=== PATIENT | female | born 1975 | race Caucasian/White ===

== ENCOUNTER 2020-10-20 13:43 | Outpatient (REF) | payer OTHER, SELFPAY ==
--- NOTE | ~2020-10-20 | US_ITS ---
EXAMINATION: US RETROPERITONEAL COMPLETE (RENAL) CLINICAL INFORMATION: Left lower quadrant pain. Hematuria. COMPARISON: CT abdomen and pelvis 12/26/2019. KUB 09/01/2015. TECHNIQUE: Real-time imaging of the kidneys and bladder. FINDINGS: RIGHT KIDNEY: 10.8 x 6.1 x 6.3 cm (SAG x AP x TRV). The kidney is normal in size, contour, and echogenicity. Renal cortical thickness is normal. No calculi or focal parenchymal lesions. No hydronephrosis. LEFT KIDNEY: 10.5 x 7.1 x 7.4 cm (SAG x AP x TRV). The kidney is normal in size, contour, and echogenicity. Renal cortical thickness is normal. No calculi or focal parenchymal lesions. No hydronephrosis. BLADDER: Well distended and normal. Bilateral ureteral jets are demonstrated. Prevoid bladder volume is 359 mL. Postvoid bladder volume is 37 mL. US/US retroperitoneal comp IMPRESSION: Unremarkable exam.
== END 2020-10-20 13:44 | disposition home or self-care (01) ==
LOC: HO.US 13:43
PROVIDERS: PCP Internal Medicine Geriatric Medicine; Visit Provider Internal Medicine Geriatric Medicine
DX: R10.32 Left lower quadrant pain (principal); R31.29 Other microscopic hematuria
CPT/HCPCS: 76770

== ENCOUNTER 2021-03-09 08:53 | Outpatient (REF) | payer OTHER, SELFPAY ==
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
== END 2021-03-09 08:54 | disposition home or self-care (01) ==
LOC: HO.NEURO 08:53
PROVIDERS: Visit Provider Registered Nurse Community Health
DX: M79.601 Pain in right arm (principal); M79.602 Pain in left arm
CPT/HCPCS: 95886; 95913

== ENCOUNTER 2021-11-30 12:38 | Outpatient (REF) | payer OTHER, SELFPAY ==
--- NOTE | ~2021-11-30 | MM_ITS ---
EXAMINATION: MM SCREENING DIGITAL BREAST TOMOSYNTHESIS, BILATERAL CLINICAL INFORMATION: Screening. Asymptomatic. The lifetime risk of breast cancer based on the Tyrer-Cuzick Model is 6%. COMPARISON: Mammography: 04/24/2019, 04/09/2018, 08/30/2017, 02/09/2017, 02/02/2017 bilateral breast MRI 05/26/2019. TECHNIQUE: Digital mammography is performed in craniocaudal and mediolateral oblique views along with computer-aided detection (CAD). Digital breast tomosynthesis is performed in implant-displaced craniocaudal and implant-displaced mediolateral oblique views along with computer-aided detection (CAD). Synthesized 2D images are generated from the tomosynthesis. FINDINGS: There are scattered areas of fibroglandular density (ACR BI-RADS breast composition Category b). There are bilateral implants. Implant contours are smooth and similar to prior studies. There is no significant masses or interval architectural abnormality or developing density or abnormal calcification. The axilla and skin contours are unremarkable. No significant changes from prior exams. MM/MM tomosynthesis screen imp BI IMPRESSION: No mammographic evidence of malignancy. ASSESSMENT: BI-RADS 1: Negative RECOMMENDATION: Routine annual mammography screening. This patient's information was entered into a reminder system with a target due date for their next mammogram.
== END 2021-11-30 12:39 | disposition home or self-care (01) ==
LOC: HO.MAMMO 12:38
PROVIDERS: PCP Internal Medicine Geriatric Medicine; Visit Provider Internal Medicine Geriatric Medicine
DX: Z12.31 Encounter for screening mammogram for malignant neoplasm of breast (principal)
CPT/HCPCS: 77063; 77067

== ENCOUNTER 2023-01-04 09:55 | Outpatient (REF) | payer OTHER, SELFPAY ==
[2023-01-04 13:39] LABS: MANUAL DIFF FLAG NO
[2023-01-04 13:53] LABS: Basophils Absolute Auto 0.1 X10*3/uL (0.0-0.2); Basophils Percent Auto 1.2 % (0-2); Eosinophils Absolute Auto 0.1 X10*3/uL (0.0-0.4); Eosinophils Percent Auto 2.3 % (0-4); Hematocrit 37.5 % (37.0-47.0); Hemoglobin 12.2 g/dl (12.0-16.0); Imm Gran Abs Auto 0.01 X10*3/uL (0.00-0.03); Imm Gran Pct Auto 0.2 % (0.0-0.4); Lymphocytes Absolute Auto 1.8 X10*3/uL (1.2-4.9); Lymphocytes Percent Auto 34.6 % (20-40); Mean Corpuscular HGB Conc 32.5 g/dl (31.0-35.0); Mean Corpuscular Volume 79.8 fL (80.0-98.0); Mean Platelet Volume 11.5 fL (9.4-12.3); Monocytes Absolute Auto 0.6 X10*3/uL (0.1-1.2); Monocytes Percent Auto 10.9 % (2-11); Neutrophils Absolute Auto 2.6 x10*3/uL (2.0-8.3); Neutrophils Percent Auto 50.8 % (45-73); Platelet Count 301 X10*3/uL (160-400); Red Cell Distribution Width 14.9 % (11.0-16.0); White Blood Count 5.1 X10*3/uL (4.8-10.8)
[2023-01-04 13:54] LABS: Microalbum/Creatinine Ratio Ur 6.3 ug/mg cr
[2023-01-04 15:11] LABS: Alanine Aminotransferase 10 U/L (0-31); Albumin Level 3.9 g/dL (3.5-5.0); Alkaline Phosphatase 63 U/L (39-117); Anion Gap 13 (12-20); Aspartate Amino Transferase 14 U/L (5-31); Bilirubin Total 0.7 mg/dL (0.0-1.0); Blood Urea Nitrogen 9 mg/dL (9-16); Calcium 9.7 mg/dL (8.4-10.2); Carbon Dioxide 28 mmol/L (22-29); Chloride 102 mmol/L (96-108); Cholesterol 166 mg/dL; Estimated Glomerular Filt Rate > 60; Glucose Random 235 mg/dL (60-115); HDL Cholesterol 47 mg/dL; LDL Cholesterol Calculated 108 mg/dl; Potassium 4.7 mmol/L (3.3-5.1); Sodium 138 mmol/L (135-145); TSH reflex Free T4 1.35 uIU/mL (0.32-4.0); Total Protein 7.7 g/dL (6.5-8.0); Triglycerides 59 mg/dL; Vitamin D 25-OH Total 33.8 ng/mL (>30)
== END 2023-01-04 09:56 | disposition home or self-care (01) ==
LOC: HO.HHCL 09:55
PROVIDERS: Visit Provider Internal Medicine Geriatric Medicine
DX: E11.69 Type 2 diabetes mellitus with other specified complication (principal); R53.83 Other fatigue; Z79.4 Long term (current) use of insulin; F41.8 Other specified anxiety disorders
CPT/HCPCS: 36415; 80053; 80061; 82043; 82306; 84443; 85025

== ENCOUNTER 2023-08-14 09:58 | Outpatient (REF) | payer OTHER, SELFPAY ==
[2023-08-14 12:02] LABS: HBS Num1 0.63 mIU/mL (0-7.99); HBsAGNum1 0.47 S/CO (0.00-0.99); Hepatitis B Surface Antigen Negative (Negative); ~Hepatitis B Surface Antibody NONREACTIVE (Nonreactive); ~Hepatitis C Antibody Nonreactive (Nonreactive)
[2023-08-14 12:14] LABS: Alanine Aminotransferase 8 U/L (0-31); Albumin Level 4.2 g/dL (3.5-5.0); Alkaline Phosphatase 73 U/L (39-117); Anion Gap 11 (12-20); Aspartate Amino Transferase 13 U/L (5-31); Bilirubin Total 0.9 mg/dL (0.0-1.0); Blood Urea Nitrogen 11 mg/dL (9-16); Calcium 9.6 mg/dL (8.4-10.2); Carbon Dioxide 26 mmol/L (22-29); Chloride 104 mmol/L (96-108); Estimated Glomerular Filt Rate > 60; Glucose Random 306 mg/dL (60-115); Potassium 4.2 mmol/L (3.3-5.1); Sodium 137 mmol/L (135-145); Total Protein 8.1 g/dL (6.5-8.0)
[2023-08-14 12:27] LABS: HIV AB/AG Nonreactive (Nonreactive); HIV Num 1 0.09 S/CO (0.00-0.99)
[2023-08-14 12:29] LABS: Creatinine Urine 104.91 mg/dL; Microalbum/Creatinine Ratio Ur 7.6 ug/mg cr (<30)
[2023-08-16 08:08] LABS: RPR Rapid Plasma Reagin NON-REACTIVE (NON-REACTIVE)
== END 2023-08-14 09:59 | disposition home or self-care (01) ==
LOC: HO.HHCL 09:58
PROVIDERS: Visit Provider Internal Medicine Geriatric Medicine
DX: E11.69 Type 2 diabetes mellitus with other specified complication (principal); F41.8 Other specified anxiety disorders; Z79.4 Long term (current) use of insulin
CPT/HCPCS: 36415; 80053; 82043; 82570; 86592; 86706; 86803; 87340; 87389

== ENCOUNTER 2024-03-26 | Outpatient (REF) | payer OTHER, SELFPAY | END 2024-03-26 00:01 | disposition home or self-care (01) | LOC: HO.HHCLNP | PROVIDERS: Visit Provider Emergency Medicine | DX: K13.0 Diseases of lips (principal) | CPT/HCPCS: 36415; 87255 ==

== ENCOUNTER 2024-03-27 08:09 | Outpatient (REF) | payer OTHER, SELFPAY ==
[2024-03-28 14:01] LABS: HBS Num1 0.56 mIU/mL (0-7.99); HBc Num1 0.12 S/CO (0.00-0.79); HBsAGNum1 0.38 S/CO (0.00-0.99); HIV AB/AG Nonreactive (Nonreactive); HIV Num 1 0.06 S/CO (0.00-0.99); Hepatitis B Core Antibody Nonreactive (Nonreactive); Hepatitis B Surface Antigen Negative (Negative); ~HepC Num1 0.09 S/CO (0.00-0.79); ~Hepatitis B Surface Antibody NONREACTIVE (Nonreactive); ~Hepatitis C Antibody Nonreactive (Nonreactive)
[2024-03-31 07:37] LABS: RPR Rapid Plasma Reagin NON-REACTIVE (NON-REACTIVE)
== END 2024-03-27 08:10 | disposition home or self-care (01) ==
LOC: HO.HHCL 08:09
PROVIDERS: Visit Provider Emergency Medicine
DX: K13.0 Diseases of lips (principal)
CPT/HCPCS: 36415; 86592; 86704; 86706; 86803; 87340; 87389

== ENCOUNTER 2024-07-10 14:47 | Outpatient (REF) | payer OTHER, SELFPAY ==
[2024-07-10 16:54] LABS: Hematocrit 33.8 % (37.0-47.0); Hemoglobin 11.1 g/dl (12.0-16.0); Mean Corpuscular HGB Conc 32.8 g/dl (31.0-35.0); Mean Corpuscular Hemoglobin 24.2 pg (27.0-33.0); Mean Corpuscular Volume 73.8 fL (80.0-98.0); Mean Platelet Volume 11.2 fL (9.4-12.3); Platelet Count 329 X10*3/uL (160-400); Red Blood Count 4.58 X10*6/uL (4.20-5.50); Red Cell Distribution Width 15.5 % (11.0-16.0); White Blood Count 7.7 X10*3/uL (4.8-10.8)
[2024-07-10 17:14] LABS: Estimated Average Glucose 194 mg/dL; Hemoglobin A1C 191.9912 umol/L; Hemoglobin A1c % 8.4 % (<6.0); Total Hemoglobin (HGBA1C) 2819.8736 umol/L
[2024-07-10 17:22] LABS: Alanine Aminotransferase 9 U/L (0-31); Albumin Level 4.3 g/dL (3.5-5.0); Alkaline Phosphatase 61 U/L (39-117); Anion Gap 10 (12-20); Aspartate Amino Transferase 18 U/L (5-31); Bilirubin Direct 0.3 mg/dL (0.0-0.5); Bilirubin Total 0.8 mg/dL (0.0-1.0); Blood Urea Nitrogen 11 mg/dL (9-16); Calcium 9.6 mg/dL (8.4-10.2); Carbon Dioxide 24 mmol/L (22-29); Chloride 109 mmol/L (96-108); Estimated Glomerular Filt Rate > 60; Glucose Random 142 mg/dL (60-115); Potassium 4.2 mmol/L (3.3-5.1); Sodium 139 mmol/L (135-145); Total Protein 8.6 g/dL (6.5-8.0)
[2024-07-10 17:31] LABS: Free T4 (Free Thyroxine) 1.02 ng/dL (0.71-1.85); Vitamin D 25-OH Total 17.6 ng/mL (>30)
== END 2024-07-10 14:48 | disposition home or self-care (01) ==
LOC: HO.HHCL 14:47
PROVIDERS: Visit Provider Family Medicine
DX: R07.9 Chest pain, unspecified (principal); R00.2 Palpitations; F41.9 Anxiety disorder, unspecified; F33.1 Major depressive disorder, recurrent, moderate; Z13.1 Encounter for screening for diabetes mellitus
CPT/HCPCS: 36415; 80048; 80076; 82306; 83036; 84439; 84443; 85027

== ENCOUNTER → 2024-07-15 09:38 | Outpatient (REF) | payer OTHER, SELFPAY ==
--- OUTSIDE RECORDS SUMMARY | 2024-07-15 10:14 | XMS_ITS | Encounter Summary ---
Author Organization [employer] Address [address] [place] [address] Care Team Providers Care [employer] Layout Designer Name Role Phone Name, Tomi TELLEZ Primary Care Provider [phone] Encounter Details Date Type Department Care Team ([facility] st Contact Info) Description 07/10/2024 1:00 PM EST Office Visit [facility] [address], [place] [id number] TarRebecca peacock, OD [address], [place] [id number] Social History Tobacco Use Types Packs/Day Years Used Date Smoking Tobacco: Never Smokeless Tobacco: Never Alcohol Use Standard Drinks/Week Comments Yes 0 (1 standard drink = 0.6 oz pur e alcohol) occassional Depression Answer Date Recorded Patient Health Questionnaire-9 Score 21 02/15/2024 Patient Health Questionnaire-9 Score 21 02/15/2024 Last PHQ-9: Questionnaire Data Not on file 0 02/15/2024 Housing Stability Answer Date Recorded What is your housing situation today? I have bob hernandez 04/18/[address] you li ve. Do you have problems with any of the following? None of the above 04/18/2023 Food Insecurity Answer Date Recorded Within the past 12 months, y ou worried that your food would run out before you got money to buy more: Never True 04/18/2023 Within the past 12 months,th e food you bought just didn't last and you didn't have enough money to get more: Never True 06/2022 Transportation Answer Date Recorded In the past 12 months, has l ack of transportation kept you from medical appts, meetings, work or from getting things needed for daily living? No 04/18/2023 Utilities Answer Date Recorded In the past 12 months, has t he electric, gas, oil or water company threatened to shut off services in your home? No 04/18/2023 Depression Answer Date Recorded Patient Health Questionnaire-2 Score 6 02/15/2024 Comments No Sex and Gender Information Value Date Recorded Sex Assigned at Female 04/17/2022 10:22 AM EDT Legal Sex Female 10:22 AM EDT Gender Identity Female 04/17/2022 10:22 AM EDT Sexual Orientation Straight 04/17/2022 10 :22 AM EDT documented as of this encounter Plan of Treatment Upcoming Encounters Date Type Department Care Team (Late st Contact Info) Description 07/30/2024 2:00 PM EST Office Visit [facility] [address] [place] [address] Caro Greene, DDS [address] [place] [address] 09/18/2024 11:15 AM EDT Office Visit [facility] [address] [place] [address] Name, MD Tomi [address] [place] [address] 11/07/2024 3:15 PM EDT Office Visit [facility] [address] [place] [address] Rebecca Philip, OD [address] [place] [address] documented as of this encounter Visit Diagnoses Not on filedocumented in this encounter Additional Health Concerns Assessment Noted Time PHQ-9 Depression Total Score: 21 024 8:39 AM EDT documented as of this encounter Care Teams [employer] Layout Designer Relationship Specialty Start Date End Date Tomi Rand MD [address] [place] [id number] PCP - General Family Medicine 08/17/15 documented as of this encounter
--- OUTSIDE RECORDS SUMMARY | 2024-07-15 10:14 | XMS_ITS | Clinical Summary ---
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 Estimated Average Glucose 194 mg/dL [facility] Comment:eAG = Estimated ave rage glucose which is %A1C expressed asaverage glucose, using the formula of the G5N-LgsajevEycyurj Glucose study (ADAG), Diabetes Care, Vol.31,#8,Jan. 2007 Blood Venous blood specimen / Unknown 07/10/2024 2:50 PM EST 07/10/2024 4:36 PM EST Abida Varner DO LAB BLOOD ORDERABLES Final R esult Performing Organization Address [facility] Co de Phone Number [facility] [address] [place] [phone] * (ABNORMAL) Hepatic Function Panel (07/10/2024 2:50 PM EST) Bilirubin, Total 0.8 0.0 - 1.0 mg/dL [facility] Bilirubin, Direct 0.3 0.0 - 0.5 mg/dL [facility] Aspartate Amino Transferase 18 5 - 31 U/L [facility] Alanine Aminotransferase 9 0 - 31 U/L [facility] Total Protein 8.6(H) 6.5 - 8.0 g/dL [facility] Albumin Level 4.3 3.5 - 5.0 g/dL [facility] Alkaline Phosphatase 61 39 - 117 U/L [facility] Blood Venous blood specimen / Unknown 07/10/2024 2:50 PM EST 07/10/2024 4:36 PM EST Abida Varner LAB BLOOD ORDERABLES Final R esult Performing Organization Address [facility] Co de Phone Number [facility] [address] [place] [phone] * (ABNORMAL) Basic Metabolic Panel (07/10/2024 2:50 PM EST) Sodium 139 135 - 145 mmol/L [facility] Potassium 4.2 3.3 - 5.1 mmol/L [facility] Chloride 109(H) 96 - 108 mmol/L [facility] Carbon Dioxide 24 22 - 29 mmol/L [facility] Anion Gap 10(L) 12 - 20 [facility] Urea Nitrogen (BUN) 11 9 - 16 mg/dL [facility] Creatinine, Serum 0.74 0.5 - 1.4 mg/dL [facility] Estimated Glomerular Filt Rate >60 [facility] Comment:Chronic Kidney Disea se: Estimated GFR < 60 mL/min/[id number] Kidney Disease: Estimated GFR < 15 mL/min/1.73m2 Glucose 142(H) 60 - 115 mg/dL [facility] Calcium 9.6 8.4 - 10.2 mg/dL [facility] Blood Venous blood specimen / Unknown 07/10/2024 2:50 PM EST 07/10/2024 4:36 PM EST us Abida Varner DO LAB BLOOD ORDERABLES Final R esult Performing Organization Address [facility] de Phone Number [facility] [address] [place] [phone] * Hepatitis C Antibody with Reflex to HCV, RNA, Quantitative, Real-Time PCR (03/27/2024 8:10 AM EDT) Hepatitis C Antibody Nonreactive Nonreactive [facility] Comment:Antibodies to HCV no t detected; does not exclude early acuteHCV infection. Blood Venous blood specimen / Unknown 03/27/2024 8:10 AM EDT 03/28/2024 12:50 PM EDT us Trey Mendes MD LAB BLOOD ORDERABLES Final Resul t Performing Organization Address [facility] de Phone Number [facility] [address] [place] [address] [phone] * HIV-1/2 Antigen and Antibodies, Fourth Generation, with Reflexes (03/27/2024 8:10 AM EDT) HIV AB/AG Nonreactive Nonreactive [facility] Comment:HIV-1 p24 Ag and/or HIV-1/HIV-2 Ab not detected.A test result that is nonreactive does not exclude thepossibility of exposure to or infection with HIV-1 and/orHIV-2. Nonreactive results in this assay for individualswith prior exposure to HIV-1 and/or HIV-2 may be due toantigen and antibody levels that are below the limit ofdetection of this assay.The [employer] HIV Ag/Ab Combo assay result andsupplemental assay results should be interpreted inconjunction with the patient's clinical presentation,history and other laboratory results. If the results areinconsistent with clinical evidence, additional testing issuggested to confirm the result. Blood Venous blood specimen / Unknown 03/27/2024 8:10 AM EDT 03/28/2024 12:50 PM EDT Trey Mendes MD LAB BLOOD ORDERABLES Final Resul t [facility] [address] [place] [phone] * Albumin, Random Urine W/Creatinine (08/14/2023 10:10 AM EST) Creatinine, Urine 104.91 mg/dL [facility] Microalbumin Urine 8.0 mg/L [facility] Microalbum Creatinine Ratio Ur 7.6 <30 ug/mg cr [facility] Comment:Albumin/Creatinine R atio Reference Ranges: Normal: < 30 ug/mg creatinine Microalbuminuria: 30 - 300 ug/mg creatinineClinical Albuminuria: > 300 ug/mg creatinine Urine (Urine, Random) 08/14/2023 10:10 AM EST 08/14/2023 11:10 AM EST us Tomi Rand MD LAB URINE ORDERABLES Final Resul t Performing Organization Address [facility] Co de Phone Number [facility] [address] [place] [address] [phone] * Lipid Panel, Standard (01/04/2023 9:59 AM EDT) Triglycerides 59 mg/dL [facility] Comment:Desirable Triglyceri de: less than 150 mg/dLBorderline High Triglyceride 150-199 mg/dLHigh Triglyceride: 200-499 mg/dLVery High Triglyceride: greater than or equal to 5OO mg/dL Cholesterol 166 mg/dL [facility] Comment:Desirable Cholestero l: less than 200 mg/dLBorderline High Cholesterol: 200-239 mg/dLHigh Cholesterol: greater than 239 mg/dL LDL Cholesterol Calculated 108 mg/dl [facility] Comment:Desirable LDL: less than 100 mg/dLNear Optimal/Above Optimal LDL: 110- 129 mg/dLBorderline High LDL: 130-159 mg/dLHigh LDL: 160-189 mg/dLVery High LDL: greater than or equal to 190 mg/dL HDL Cholesterol 47 mg/dL [facility] Comment:Desirable HDL: great er than 40 mg/dL Note: This HDL assay may give artificially low results in patients with liver disease. Blood Venous blood specimen / Unknown 01/04/2023 9:59 AM EDT 01/04/2023 1:35 PM EDT us Tomi Rand MD LAB BLOOD ORDERABLES Final Resul t Performing Organization Address [facility]/ZIP Co de Phone Number [facility] [address] [place] [phone] * Mammography Report 1 (11/30/2021 1:12 PM EDT) Anatomical Region Laterality Modality Breast Bilateral Mammography 11/30/2021 1:12 PM EDT Narrative 12/22/2021 1:09 PM EDT Refer to the Notes tab for result details [facility] Procedure: Mammography Report 1 Procedure Note Provider, MD Owen - 09/10/2022 Refer to the Notes tab for result details [facility] Procedure: Mammography Report 1 Tomi Name MD KAMINSKI BI PROCEDURES Final Result * (ABNORMAL) HM PAP/HPV (11/10/2021) Pap Smear 1. NILM 1. NILM HPV Detected(A ) Undetected, Indeterminate , Quantitative, Not Detected Historical Provider HEALTH MAINTENANCE Final Result from Last 3 Months or Most Recently Relevant to Health Maintenance Insurance [facility] Care Teams Transplant Nurse Relationship Specialty Start Date End Date Name, MD Tomi [address] [place] [phone] PCP - General Family Medicine 08/17/15
--- OUTSIDE RECORDS SUMMARY | 2024-07-15 10:14 | XMS_ITS | Clinical Summary ---
Author Organization [facility] ity Address [id number] [place] [phone] Care Team Providers Care Panel Edge Sealer Name Role Phone Unavailable Primary Care Provider Unavailabl e Social History Tobacco Use Types Packs/Day Years Used Date Smoking Tobacco: Never Assessed Sex and Gender Information Value Date Recorded Sex Assigned at Not on file Gender Identity Not on file Sexual Orientation Not on file Plan of Treatment Health Maintenance Due Date Last Done Comments Breast Cancer Screening 1976 DTaP,Tdap,and Td Vaccines (1 - Tdap) 12/17/1995 Hepatitis B Vaccines (1 of 3 - 19+ 3-dose series) 12/17/1995 Cervical Cancer Screening: P ap Smear 1997 Colorectal Cancer Screening: Colonoscopy 05/20/2022 Depression Screening 05/20/2022 HIV Screening 05/20/2022 Hepatitis C Screening 05/20/2022 Social Influencers of Health Screening 05/20/2022 COVID-19 Vaccine (2023-2 5 season) 2024 Influenza Vaccine (#1) 2024 HIB Vaccines Aged Out No longer eligi [...] on patient's age to complete this topic MMR Vaccines Aged Out No longer eligi ble based on patient's age to complete this topic Meningococcal ACWY Vaccine Aged Out N o longer eligible based on patient's age to complete this topic Pneumococcal Vaccine: Pediat rics (0 to 5 Years) and At-Risk Patients (6 to 64 Years) Aged Out No longer eligible b ased on patient's age to complete this topic RSV Immunization Patients Un brody 20 months Aged Out No longer eligible b ased on patient's age to complete this topic Varicella Vaccines Aged Out No longer eligible based on patient's age to complete this topic
--- OUTSIDE RECORDS SUMMARY | 2024-07-15 10:14 | XMS_ITS | Encounter Summary ---
Author Organization [employer] Address [address] [place] [address] Care Team Providers Care Desizing Machine Offbearer Name Role Phone Name, Tomi TELLEZ Primary Care Provider [phone] Encounter Details Date Type Department Care Team ([facility] st Contact Info) Description 06/26/2024 Telephone [facility] [address] [place], [place] [phone] [facility] [address] [place], [place] [phone] Social History Tobacco Use Types Packs/Day Years [...] Description 07/30/2024 2:00 PM EST Office Visit [facility] ADULT DENTAL [address] [place] [address] Caro Greene, DDS [address] [place] [address] 09/18/2024 11:15 AM EDT Office Visit [facility] [address] [place] [address] NameTomi MD [address] [place] [address] 11/07/2024 3:15 PM EDT Office Visit [facility] OPTOMETRY [address] [place] [address] TarRebecca peacock, OD [address] [place] [address] documented as of this encounter Visit Diagnoses Not on filedocumented in this encounter Additional Health Concerns Assessment Noted Time PHQ-9 Depression Total Score: 21 024 8:39 AM EDT documented as of this encounter Care Teams Desizing Machine Offbearer Relationship Specialty Start Date End Date NameTomi MD [address] [place] [address] PCP - General Family Medicine 08/17/15 documented as of this encounter
--- OUTSIDE RECORDS SUMMARY | 2024-07-15 10:14 | XMS_ITS | Encounter Summary ---
Author Organization [employer] Address [address] [place] [address] Care Team Providers Care Assistant Health Educator Name Role Phone Name, Tomi TELLEZ Primary Care Provider [phone] Reason for Visit * Reason Comments rectum problem Encounter Details Date Type Department Care Team ([facility] st Contact Info) Description 06/26/2024 2:20 PM EST Office Visit [facility] [address] [place] [address] [phone] Krista Sanchez MD [address] [place], [place] [phone] Hemorrhoids, unspecified hemorrhoid type (Primary Dx); Chronic idiopathic constipation; Family hx of colon cancer; Encounter for screening for malignant neoplasm of colon Social History Tobacco Use Types Packs/Day Years [...] is your housing situation today? I have bobannie hernandez 04/18/[address] you [...] AM EDT documented as of this encounter Last Filed Vital Signs Vital Sign Reading Time Taken Comments Blood Pressure 105/73 06/26/2024 2:08 PM EST Pulse 96 06/26/2024 2:08 PM EST Temperature 37.3 ??C (99.1 ??F) 06/26/2024 2:08 PM ES T Respiratory Rate 17 06/26/2024 2:08 PM EST Oxygen Saturation 100% 06/26/2024 2:08 PM EST Inhaled Oxygen Concentration - - Weight 67.1 kg (148 lb) 06/26/2024 2:08 PM EST Height - - Body Mass Index 24.63 05/09/2024 9:01 AM EST documented in this encounter Progress Notes * Itzel Nava - 06/26/2024 2:20 PM EST Subjective Patient ID: Maddie Hurtado is a 48 y.o. female with PMHx of T2DM, lyme arthritics, anxiety/depression and chronic constipation who presents to walk in clinic for rectum problem. Per last visit to [facility] on 05/09/24 pt has chronic constipation and reported constipation x 2 weeks. Has used enema x 3. Reported pebble like stools. + external hemorrhoids (pt had picture on phone) Last BM was 3 days prior with use of enema; unable to recall last time she had BM without use of enema. No abdominal pain, blood in stool. No prior colonoscopy. Suspected enema overuse contributing and counseled to stop enema. Reviewed diet changes to increase fluid/fiber. Prescribed MiraLax and Senokot. Referred to GI 05/09/24 and noted pt is due for colon cancer screening. Seen by [facility] on 05/26/24. Pt reports she was here to see her Dentist and the appointment got canceled because She notes she had rectal prolapse and was referred to for that during her last visit here in [facility] in April 2024. Pt reports she has not seen GI or heard about scheduling an appt. Pt reports her brother had some sort of colon cancer. Review of Systems Constitutional: Negative for fever and unexpected weight change. Respiratory: Negative for shortness of breath. Cardiovascular: Negative for chest pain. Gastrointestinal: Positive for rectal pain. Negative for abdominal pain. Genitourinary: Negative for difficulty urinating. Objective Visit Vitals BP 105/73 (BP Location: Left arm, Patient Position: Sitting, BP Cuff Size: Adult) Pulse 96 Temp 99.1 ??F (37.3 ??C) (Temporal) Resp 17 Body mass index is 24.63 kg/m??. Physical Exam Constitutional: Appearance: Normal appearance. Cardiovascular: Rate and Rhythm: Normal rate. Pulmonary: Effort: Pulmonary effort is normal. Genitourinary: Rectum: External hemorrhoid (no prolapsed hemorrhoids) present. No mass. Normal anal tone. Musculoskeletal: Cervical back: Normal range of motion. Neurological: General: No focal deficit present. Mental Status: She is alert. Psychiatric: Behavior: Behavior normal. Problem List Items Addressed This Visit Hemorrhoids - Primary External hemorrhoids found on exam. None prolapsed. -called to see if pt had any upcoming appt's with [facility]. Will re-FAX referral letter from 05/09/24 and give pt the phone number to call. -Got pt an appt in August 2024. -ER precautions discussed. -Seek medical attention for worsening symptoms. Constipation Chronic constipation, requiring daily stool softeners and enemas. Has developed hemorrhoids that have prolapsed in the past, but not currently prolapsed. -called to see if pt had any upcoming appt's with [facility]. Will re-FAX referral letter from 05/09/24 and give pt the phone number to call. -Got pt an appt in August 2024. -ER precautions discussed. -Seek medical attention for worsening symptoms. Family hx of colon cancer Was referred for overdue colon cancer screening on 05/09/24. Per records there was an unknown encounter without any information with [facility] n 05/26/24. Pt reports she has not heard about any appt or seen GI. Pt notes her brother had colon cancer. -called to see if pt had any upcoming appt's with [facility]. Will re-FAX referral letter from 05/09/24 and give pt the phone number to call. -Got pt an appt in August 2024. -ER precautions discussed. -Seek medical attention for worsening symptoms. Encounter for screening for malignant neoplasm of colon Was referred for overdue colon cancer screening on 05/09/24. Per records there was an unknown encounter without any information with [facility] n 05/26/24. Pt reports she has not heard about any appt or seen GI. -called to see if pt had any upcoming appt's with [facility]. Will re-FAX referral letter from 05/09/24 and give pt the phone number to call. Will ensure GI is aware of urgency, given constipation, hemorrhoids and Fhx of colon cancer. -Got pt an appt in August 2024. -ER precautions discussed. -Seek medical attention for worsening symptoms. -No evidence of acute disease process. -ER precautions discussed. -Seek medical attention for worsening symptoms. I, Itzel Nava, am serving as a scribe to document services personally performed by Dr. Kwon, based on the patient's response to questions by provider and providers statements to me. documented in this encounter Miscellaneous Notes * Assessment & Plan Note - Itzel Nava - 06/26/2024 2:33 PM ESTAssociated Problem(s): Encounter for screening for malignant neoplasm of colon Was referred for overdue colon cancer screening on 05/09/24. Per records there was an unknown encounter without any information with [facility] 05/26/24. Pt reports she has not heard about any appt or seen GI. -called to see if pt had any upcoming appt's with [facility]. Will re-FAX referral letter from 05/09/24 and give pt the phone number to call. Will ensure GI is aware of urgency, given constipation, hemorrhoids and Fhx of colon cancer. -Got pt an appt in August 2024. -ER precautions discussed. -Seek medical attention for worsening symptoms. * Assessment & Plan Note - Itzel Nava - 06/26/2024 2:32 PM ESTAssociated Problem(s): Family hx of colon cancer Was referred for overdue colon cancer screening on 05/09/24. Per records there was an unknown encounter without any information with [facility] n 05/26/24. Pt reports she has not heard about any appt or seen GI. Pt notes her brother had colon cancer. -called to see if pt had any upcoming appt's with [facility]. Will re-FAX referral letter from 05/09/24 and give pt the phone number to call. -Got pt an appt in August 2024. -ER precautions discussed. -Seek medical attention for worsening symptoms. * Assessment & Plan Note - Itzel Nava - 06/26/2024 2:31 PM ESTAssociated Problem(s): Constipation Chronic constipation, requiring daily stool softeners and enemas. Has developed hemorrhoids that have prolapsed in the past, but not currently prolapsed. -called to [facility] if pt [facility]. Will re-FAX referral letter from 05/09/24 and give pt the phone number to call. -Got pt an appt in August 2024. -ER precautions discussed. -Seek medical attention for worsening symptoms. * Assessment & Plan Note - Itzel Nava - 06/26/2024 2:30 PM ESTAssociated Problem(s): Hemorrhoids External hemorrhoids found on exam. None prolapsed. -called to see if pt had any upcoming appt's with [facility]. Will re-FAX referral letter from 05/09/24 and give pt the phone number to call. -Got pt an appt in August 2024. -ER precautions discussed. -Seek medical attention for worsening symptoms. documented in this encounter Plan of Treatment Upcoming Encounters Date Type Department Care Team (Late st Contact Info) Description 07/30/2024 2:00 PM EST Office Visit [facility] ADULT DENTAL [address] [place] [address] Caro Greene DDS [address] [place] [address] 09/18/2024 11:15 AM EDT Office Visit [facility] MED[facility] [address] [place] [address] Tomi Rand MD [address] [place] [address] 11/07/2024 3:15 PM EDT Office Visit [facility] OPTOMETRY [address] [place] [address] Rebecca Philip, OD [address] [place] [address] documented as of this encounter Visit Diagnoses Diagnosis Hemorrhoids, unspecified hemorrhoid type- Primary Chronic idiopathic constipation Unspecified constipation Family hx of colon cancer Family history of malignant neoplasm of gastrointestinal tract Encounter for screening for malignant neoplasm of colon documented in this encounter Additional Health Concerns Assessment Noted Time PHQ-9 Depression Total Score: 21 024 8:39 AM EDT documented as of this encounter Care Teams Assistant Health Educator Relationship Specialty Start Date End Date Tomi Rand MD [address] [place] [address] PCP - General Family Medicine 08/17/15 documented as of this encounter
--- OUTSIDE RECORDS SUMMARY | 2024-07-15 10:14 | XMS_ITS | Encounter Summary ---
Author Organization [employer] Address [address] [place] [address] Care Team Providers Care Aircraft Painter Apprentice Name Role Phone Name, Tomi TELLEZ Primary Care Provider [phone] Encounter Details Date Type Department Care Team ([facility] st Contact Info) Description 06/26/2024 Telephone [facility] ADULT D[facility]AL [address] [place] [address] Jessica Sparks Social History Tobacco Use Types Packs/Day Years [...] t he electric, gas, oil or water [employer] threatened to shut off services in your home? No 04/18/2023 Depression Answer Date Recorded Patient Health Questionnaire-2 Score 6 02/15/2024 Comments No Sex and Gender Information Value Date Recorded Sex Assigned at Female 04/17/2022 10:22 AM EDT Legal Sex Female 10:22 AM EDT Gender Identity Female 04/17/2022 10:22 AM EDT Sexual Orientation Straight 04/17/2022 10 :22 AM EDT documented as of this encounter Miscellaneous Notes * Telephone Encounter - Prem White - 06/26/2024 8:00 AM EST LVM, informing pt her appointment was cancel provider out of the office today. to reach us back to reschedule, documented in this encounter Plan of Treatment Upcoming Encounters Date Type Department Care Team (Late st Contact Info) Description 07/30/2024 2:00 PM EST Office Visit [facility] ADULT DENTAL [address] [place] [address] Caro Greene, DDS [address] [place] [address] 09/18/2024 11:15 AM EDT Office Visit [facility] MED[facility]INE [address] [place] [address] Tomi Rand MD [address] [place] [address] 11/07/2024 3:15 PM EDT Office Visit [facility] OPTOMETRY [address] [place] [address] Rebecca Philip, OD [address] [place] [address] documented as of this encounter Visit Diagnoses Not on filedocumented in this encounter Additional Health Concerns Assessment Noted Time PHQ-9 Depression Total Score: 21 024 8:39 AM EDT documented as of this encounter Care Teams Aircraft Painter Apprentice Relationship Specialty Start Date End Date Tomi Rand MD [address] [place] [address] PCP - General Family Medicine 08/17/15 documented as of this encounter
--- OUTSIDE RECORDS SUMMARY | 2024-07-15 10:14 | XMS_ITS | Encounter Summary ---
Author Organization [employer] [facility] Address [address] [place] [address] Care Team Providers Care Senior Software Development Engineer Name Role Phone Name, Tomi TELLEZ Primary Care Provider [phone] Reason for Referral * Medications - Closed Specialty Diagnoses / Procedures Referred By Marleny t Referred To Contact Lisa Mcdaniel MD [address] [place] [address] Phone: tel: fax: Referral ID Status Reason Start Date Expiration Date Visits Re quested Visits Authorized [id number] Closed 1 1 Encounter Details Date Type Department Care Team ([facility] Contact Info) Description 10/01/2023 Orders Only [facility] [address], [place] [phone] Lisa Mcdaniel MD [address] [place] [address] Social History Tobacco Use Types Packs/Day Years Used Date Smoking Tobacco: Never Smokeless Tobacco: Never Alcohol Use Standard Drinks/Week Comments Yes 0 (1 standard drink = 0.6 oz pur e alcohol) occassional Depression Answer Date Recorded Patient Health Questionnaire-9 Score 11 08/14/2023 Patient Health Questionnaire-9 Score 11 08/14/2023 Last PHQ-9: Questionnaire Data Not on file 0 08/14/2023 Housing Stability Answer Date Recorded What is [...] Date Recorded Patient Health Questionnaire-2 Score 6 08/14/2023 Comments Unknown Sex and Gender Information Value Date Recorded Sex Assigned at Female 04/17/2022 10:22 AM EDT Legal Sex Female 10:22 AM EDT Gender Identity Female 04/17/2022 10:22 AM EDT Sexual Orientation Straight 04/17/2022 10 :22 AM EDT documented as of this encounter Plan of Treatment Upcoming Encounters Date Type Department Care Team (Late st Contact Info) Description 07/30/2024 2:00 PM EST Office Visit [facility] [address] [place] [address] Caro Greene, DDS [address] [place] [address] 09/18/2024 11:15 AM EDT Office Visit [facility] MEDICINE [address] [place] [address] Name, MD Tomi [address] [place] [address] 11/07/2024 3:15 PM EDT Office Visit [facility] OPT[facility] [address] [place] [address] Rebecca Philip, OD [address] [place] [address] documented as of this encounter Visit Diagnoses Not on filedocumented in this encounter Additional Health Concerns Assessment Noted Time PHQ-9 Depression Total Score: 11 024 9:09 AM EST documented as of this encounter Care Teams Senior Software Development Engineer Relationship Specialty Start Date End Date Name, MD Tomi [address] [place] [address] PCP - General Family Medicine 08/17/15 documented as of this encounter
--- OUTSIDE RECORDS SUMMARY | 2024-07-15 10:14 | XMS_ITS | Encounter Summary ---
Author Organization [employer] Address [address] [place] [address] Care Team Providers Care Business Support Liaison Name Role Phone Name, Tomi TELLEZ Primary Care Provider [phone] Encounter Details Date Type Department Care Team (Latest Contact Info) Description 07/10/2024 Travel Social History Tobacco Use Types Packs/Day Years [...] Description 07/30/2024 2:00 PM EST Office Visit [facility] ADULT D[facility]AL [address] [place] [address] Caro Greene, DDS [address] [place] [address] 09/18/2024 11:15 AM EDT Office Visit [facility] MEDICINE [address] [place] [address] NameTomi MD [address] [place] [address] 11/07/2024 3:15 PM EDT Office Visit [facility] OPTOMETRY [address] [place] [address] TarRebecca peacock, OD [address] [place] [address] documented as of this encounter Visit Diagnoses Not on filedocumented in this encounter Additional Health Concerns Assessment Noted Time PHQ-9 Depression Total Score: 21 024 8:39 AM EDT documented as of this encounter Care Teams Business Support Liaison Relationship Specialty Start Date End Date Tomi Rand MD [address] [place] [phone] PCP - General Family Medicine 08/17/15 documented as of this encounter
--- OUTSIDE RECORDS SUMMARY | 2024-07-15 10:14 | XMS_ITS | Encounter Summary ---
Author Organization [employer] [facility] Address [address] [place] [address] Care Team Providers Care Junior Paralegal Name Role Phone Name, Tomi TELLEZ Primary Care Provider [phone] Reason for Visit * Reason Onset Date Comments Nurse Triage 07/10/2024 Chest pain with radiation to the left neck and left arm Encounter Details Date Type Department Care Team ([facility] st Contact Info) Description 07/10/2024 Telephone [facility] [address] [place], [place] [phone] Paige Aleman, RN [address] [place], [place] [phone] Nurse Triage (Chest pain with radiation to the left neck and left arm ) Social History Tobacco Use Types Packs/Day Years [...] encounter Miscellaneous Notes * Telephone Encounter - Paige Aleman RN - 07/10/2024 12:16 PM EST Assessment: Patient presents to [facility] c/o 01/25 constant chest pressure with radiation to the left neck and left arm since waking this morning. Patient reports she feels her heart is racing and she feels like her heart is going to come out through her mouth. Patient also reports slight SOB and a little dizziness with blurry vision. Patient denies n/v, diaphoresis. Patient took ASA 81mg at 9:30am today. Patient states she also awoke with her heart racing yesterday but went back to bed and slept to 1pm. When she awoke symptoms were no longer present. Patient also reports she has a Hx chest pressure and palpitations- discussed with PCP- Dr Rand in the past and has had 24 hour heart monitor done resulting in tachycardia. Patient states she was alsoseen by a Medical Oncology Physician in [place] who also has done a work up and informed Patient she has anxiety/ depression that is causing tachycardia. Patient also states that she has had increased stress in her life lately, -was almost out of a home, just recently straightened out her housing situation, recently experienced food insecurities but this is also resolved now. Patient reports she was formerly seen by a therapist but currently not under the care of a therapist or psychiatrist and is not interested in resuming care. Patient states she controls Depression by talking things over with her daughter. Patient was formerly on medication for Depression and Anxiety but has not been on medication for about 3-4 months. VS as follows (if applicable): 01/04/2023 9:05 AM 08/14/2023 9:05 AM 03/26/2024 5:12 PM 05/09/2024 9:01 AM 06/26/2024 2:08 PM 07/10/2024 9:54 AM 07/10/2024 12:12 PM Vitals Systolic 99 101 97 115 105 122 105 Diastolic 66 67 67 73 73 78 71 Heart Rate 81 81 102 100 96 101 Temp 98.5 ??F (36.9 ??C) 96.9 ??F (36.1 ??C) 97.1 ??F (36.2 ??C) 98.3 ??F (36.8 ??C) 99.1 ??F (37.3??C) 98.9 ??F (37.2 ??C) Resp 16 16 16 16 17 18 Height (in) 5' 5 (1.651 m) 5' 5 (1.651 m) 5' 5 (1.651 m) 5' 5 (1.651 m) 5' 4 (1.626 m) Weight (lb) 148.4 151 144.13 143.4 148 150 BMI 24.7 kg/m2 25.13 kg/m2 23.98 kg/m2 23.86 kg/m2 24.63 kg/m2 25.75 kg/m2 BSA (m2) 1.76 m2 1.77 m2 1.73 m2 1.73 m2 1.75 m2 1.75 m2 Visit Report Report Report Report Report Report Report Report Report Report Report No Known Allergies Current Outpatient Medications Medication Sig Dispense Refill acetaminophen (Tylenol) 500 MG tablet Take 1 tablet (500 mg) by mouth every 6 (six) hours if neededfor mild pain for up to 20 doses. 20 tablet 0 Continuous Blood Gluc Vocational Training Teacher (FreeStyle Sina 2 [place]) device Use once a day (Patient not taking: Reported on 07/10/2024) 1 each 0 Continuous Blood Gluc Sensor (FreeStyle Sina 2 Sensor) misc Use as directed every 14 days (Patientnot taking: Reported on 07/10/2024) 2 each 11 dulaglutide (Trulicity) 0.75 MG/0.5ML solution pen-injector Inject 0.75 mg under the skin 1 (one) time per week. (Patient not taking: Reported on 07/10/2024) 4 each 11 DULoxetine (Cymbalta) [address] capsule Take 1 capsule (30 mg) by mouth Once per day. Do not crush or chew. (Patient not taking: Reported on 05/09/2024) 30 capsule 2 glucose blood test strip Use to check blood sugar by fingerstick route every day (Patient not taking: Reported on 07/10/2024) 100 each 3 hydrocortisone (Anusol-HC) 2.5 % rectal cream APPLY A THIN LAYER TO AFFECTED AREA(S) 2 TO 4 TIMES DAILY (Patient not taking: Reported on 07/10/2024) ibuprofen 600 MG tablet Take 1 tablet (600 mg) by mouth every 6 (six) hours if needed for mild painfor up to 20 doses. 20 tablet 0 insulin glargine (Lantus SoloStar) 100 UNIT/ML pen INJECT 10 UNITS SUBCUTANEOUSLY EVERY DAY 15 mL 3 insulin pen needle (Pentips) 32G x 4 mm misc USE FOUR TIMES DAILY WITH INSULIN 100 each 11 lactulose (Chronulac) 10 GM/15ML solution metFORMIN (Glucophage) 1000 MG tablet Take 1 tablet (1,000 mg) by mouth with breakfast and with evening meal. Patient will start taking half tablet daily for 5 days,then half tablet BID for another 5days and then full tablet twice a day 180 tablet 0 OneTouch Delica Lancets 33G misc Use to check blood sugar by fingerstick route every day 100 each 3 polyethylene glycol, PEG, 3350 (Miralax) 17 g packet Take 17 g by mouth 2 times daily. 720 packet 3 senna-docusate sodium (Senokot-S) 8.6-50 MG tablet Take 1 tablet by mouth Once per day. 30 tablet 11 valACYclovir (Valtrex) 1 g tablet Take 1 tablet (1,000 mg) by mouth 2 times daily. 20 tablet 0 No current facility-administered medications for this visit. 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 Traumatic injury 06/27/2022 Uterine leiomyoma 06/27/2022 Iron deficiency anemia 03/14/2016 Anxiety 02/11/2016 Chronic pelvic pain in female 01/31/2013 Severe episode of recurrent major depressive disorder, without psychotic features ([facility]) 10/09/2012 Type 2 diabetes mellitus ([facility]) 10/09/2012 In Office Testing EKG performed by Keshia Espinosa RN and given to Dr Varner Plan of care: Report to Dr Varner Provider evaluation: Yes Per Dr Varner EKG looks good, unless Patient report and appearance is concerning able to await appt time in the order of arrival. Patient reports she would like to attend Eyecare appt and then return around 2pm for Provider evauation. Dr Varner agreeable to plan. Patient will return after eye appt. Paige Aleman RN documented in this encounter Plan of Treatment Upcoming Encounters Date Type Department Care Team (Late st Contact Info) Description 07/30/2024 2:00 PM EST Office Visit [facility] [address] [place] [address] Caro Greene, DDS [address] [place] [address] 09/18/2024 11:15 AM EDT Office Visit [facility] [address] [place] [address] Name, MD Tomi [address] [place] [address] 11/07/2024 3:15 PM EDT Office Visit [facility] [address] [place] [address] TarRebecca peacock, OD [address] [place] [address] documented as of this encounter Visit Diagnoses Not on filedocumented in this encounter Additional Health Concerns Assessment Noted Time PHQ-9 Depression Total Score: 21 02/14/ 024 8:39 AM EDT documented as of this encounter Care Teams Junior Paralegal Relationship Specialty Start Date End Date Name, MD Tomi [address] [place] [address] PCP - General Family Medicine 08/17/15 documented as of this encounter
--- OUTSIDE RECORDS SUMMARY | 2024-07-15 10:14 | XMS_ITS | Encounter Summary ---
Author Organization [facility] Address [address] [facility] [address] [place] [address] Care Team Providers Care Coil Connector Name Role Phone Name, Tmoi TELLEZ Primary Care Provider [phone] Reason for Referral * Consultation (STAT) - Authorized Specialty Diagnoses / Procedures Referred By Marleny t Referred To Contact Cardiology Diagnoses Chest pain, unspecified type Palpitations Abida Varner DO [address] [place] [address] Phone: tel: fax: [address] Phone: tel: fax: Referral ID Status Reason Start Date Expiration Date Visits Requested Visits Authorized [id number] Authorized Specialty Services Required 07/10/2024 07/10/2025 1 1 * Cardiology (Routine) - Authorized Specialty Diagnoses / Procedures Referred By Contac t Referred To Contact Cardiology Diagnoses Chest pain, unspecified type Palpitations Procedures Holter monitor - 24 hour Abida Varner DO [address] [place] [address] Phone: tel: fax: [address] Phone: tel: fax: Referral ID Status Reason Start Date Expiration Date V isits Requested Visits Authorized [id number] Authorized 07/10/2024 07/10/2025 1 1 * Imaging (Routine) - Pending Review Specialty Diagnoses / Procedures Referred By Marleny joshi Referred To Contact Cardiology Diagnoses Chest pain, unspecified type Palpitations Procedures Transthoracic Echo (TTE) Complete Abida Varner DO [address] [place] [address] Phone: tel: fax: [address] Phone: tel: fax: Referral ID Status Reason Start Date Expiration Date Visits Requested Visits Authorized [id number] Pending Review Perform Procedure 07/10/2024 07/10/2025 1 1 Reason for Visit * Reason Comments Chest Pain Encounter Details Date Type Department Care Team (Late st Contact Info) Description 07/10/2024 3:00 PM EST Office Visit [facility] [address] [place], [place] [phone] Abida Varner DO [address] [place], [place] [phone] Chest pain, unspecified type (Primary Dx); Palpitations; Anxiety; Moderate episode of recurrent major depressive disorder (CMS/HCC) Social History Tobacco Use Types Packs/Day Years [...] Mass Index 25.75 07/10/2024 12:12 PM EST documented in this encounter Progress Notes * Abida Varner, DO - 07/10/2024 2:00 PM EST SUBJECTIVE Maddie Hurtado is a 48 y.o. female who presents for Sick Visit. She presented to triage earlier today c/o 8/10 chest pressure radiating to her L arm with dizzinessand palpitations. She had EKG with no acute changes. She requested to return for eval after her eyeexam. She reported h/o CP and palpitations and was told by cards in [place] that her sx were due to anxiety and depression. She also reported recent life stressors with housing and food insecurities, which have since resolved but still lingering stress. She c/o dizziness and palpitations yesterday morning when she woke-up to go to the bathroom; she says she went back to sleep and her sx were gone when she woke up. She woke-up this morning having thesame sx but the pressure was much more and she was concerned about the pain going into her neck andL arm. She still feels the sx this afternoon but much less than earlier. She says she had these sx happen a long time ago and she was sent for a Holter monitor. She has DM. She is not a smoker. Her mom had first MS at age 54 and her dad from a massive heart attack. She is not currently following with a therapist. She was referred to therapist about 3 m/a, but shekept getting switched from person to person, so she just stopped going. She says she used to followwith someone for BH in [place] and they are going to be moving to the area and taking pts again, so she wants to go back to them. She says that her children are her therapists. She used to take cymbalta, which helped, but she has not had it in the past couple of mos. She says she drinks a lot of coffee. History provided by: Patient seed trucker used: Yes (Alex Choi) Chest Pain Pain location: Substernal area Pain quality: pressure Pain radiates to: L arm Pain severity: Mild Onset quality: Gradual Duration: 2 days Timing: Constant Progression: Waxing and waning Ineffective treatments: None tried Associated symptoms: anxiety, dizziness and palpitations Associated symptoms: no abdominal pain, no cough, no fatigue, no fever, no headache, no heartburn, no nausea, no orthopnea, no PND, no shortness of breath, no syncope, no vomiting and no weakness Review of Systems Constitutional: Negative for activity change, appetite change, chills, fatigue, fever and unexpected weight change. Respiratory: Negative for cough and shortness of breath. Cardiovascular: Positive for chest pain and palpitations. Negative for orthopnea, leg swelling, syncope and PND. Gastrointestinal: Negative for abdominal pain, diarrhea, heartburn, nausea and vomiting. Musculoskeletal: Positive for myalgias and neck pain. Neurological: Positive for dizziness. Negative for weakness and headaches. Psychiatric/Behavioral: Positive for dysphoric mood. The patient is nervous/anxious. 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 OB Status Having periods Smoking Status Never BSA 1.75 m?? Physical Exam Constitutional: General: She is not in acute distress. Appearance: Normal appearance. Cardiovascular: Rate and Rhythm: Regular rhythm. Heart sounds: Normal heart sounds. No murmur heard. Pulmonary: Effort: Pulmonary effort is normal. Breath sounds: Normal breath sounds. No wheezing or rhonchi. Chest: Chest wall: No tenderness. Neurological: General: No focal deficit present. Mental Status: She is alert and oriented to person, place, and time. Cranial Nerves: No cranial nerve deficit. Motor: No weakness. Gait: Gait normal. Psychiatric: Attention and Perception: Attention normal. Mood and Affect: Mood is anxious and depressed. Speech: Speech normal. Behavior: Behavior normal. Thought Content: Thought content normal. Encounter Date: 07/10/24 ECG 12 lead Narrative NSR, nml axis/intervals, no Q waves, no ST depression/elevation, TWF III (unchanged from prior) Assessment/Plan Diagnoses and all orders for this visit: Chest pain, unspecified type Palpitations Persistent sx with h/o DM and FHx CAD, EKG with no acute changes, likely atypical CP -check basic labs -referred for ECHO and Holter -referred to cards for eval and stress testing -advised go to ED if sx change or worsen, she agrees with plans Anxiety -she denies any current SI/HI -she has the number for crisis and contracts for safety -restart cymbalta daily -she declines visit with clinician today -she declines referral to therapist at this time --Follow-up with PCP as scheduled or sooner prn-- Current Outpatient Medications: acetaminophen (Tylenol) 500 MG tablet, Take 1 tablet (500 mg) by mouth every 6 (six) hours if needed for mild pain for up to 20 doses., Disp: 20 tablet, Rfl: 0 Continuous Blood Gluc Automobile Technician (FreeStyle Sina 2 [place]) device, Use once a day (Patient not taking: Reported on 07/10/2024), Disp: 1 each, Rfl: 0 Continuous Blood Gluc Sensor (FreeStyle Sina 2 Sensor) misc, Use as directed every 14 days (Patient not taking: Reported on 07/10/2024), Disp: 2 each, Rfl: 11 dulaglutide (Trulicity) 0.75 MG/0.5ML solution pen-injector, Inject 0.75 mg under the skin 1 (one) time per week. (Patient not taking: Reported on 07/10/2024), Disp: 4 each, Rfl: 11 DULoxetine (Cymbalta) [address] capsule, Take 1 capsule (30 mg) by mouth Once per day. Do not crush or chew., Disp: 30 capsule, Rfl: 2 glucose blood test strip, Use to check blood sugar by fingerstick route every day (Patient not taking: Reported on 07/10/2024), Disp: 100 each, Rfl: 3 hydrocortisone (Anusol-HC) 2.5 % rectal cream, APPLY A THIN LAYER TO AFFECTED AREA(S) 2 TO 4 TIMES DAILY (Patient not taking: Reported on 07/10/2024), Disp: , Rfl: ibuprofen 600 MG tablet, Take 1 tablet (600 mg) by mouth every 6 (six) hours if needed for mild pain for up to 20 doses., Disp: 20 tablet, Rfl: 0 insulin glargine (Lantus SoloStar) 100 UNIT/ML pen, INJECT 10 UNITS SUBCUTANEOUSLY EVERY DAY, Disp:15 mL, Rfl: 3 insulin pen needle (Pentips) 32G x 4 mm misc, USE FOUR TIMES DAILY WITH INSULIN, Disp: 100 each, Rfl: 11 lactulose (Chronulac) 10 GM/15ML solution, , Disp: , Rfl: metFORMIN (Glucophage) 1000 MG tablet, Take 1 tablet (1,000 mg) by mouth with breakfast and with evening meal. Patient will start taking half tablet daily for 5 days,then half tablet BID for another 5 days and then full tablet twice a day, Disp: 180 tablet, Rfl: 0 OneTouch Delica Lancets 33G misc, Use to check blood sugar by fingerstick route every day, Disp: 100 each, Rfl: 3 polyethylene glycol, PEG, 3350 (Miralax) 17 g packet, Take 17 g by mouth 2 times daily., Disp: 720 packet, Rfl: 3 senna-docusate sodium (Senokot-S) 8.6-50 MG tablet, Take 1 tablet by mouth Once per day., Disp: 30 tablet, Rfl: 11 valACYclovir (Valtrex) 1 g tablet, Take 1 tablet (1,000 mg) by mouth 2 times daily., Disp: 20 tablet, Rfl: 0 Scribe Attestation: Malcom Chahal, am serving as a scribe to document services personally performed by Abida Burrell, based on the patient's response to questions by provider and provider's statements to me. Physicians Attestation: Abida Chahal DO, have reviewed the information by the scribe, Malcom Billy, for accuracy and agree with its content. documented in this encounter Plan of Treatment Upcoming Encounters Date Type Department Care Team (Late st Contact Info) Description 07/30/2024 2:00 PM EST Office Visit [facility] [address] [place] [address] Caro Greene DDS [address] [place], [place] [phone] 09/18/2024 11:15 AM EDT Office Visit [facility] [address] [place] [address] Name, MD Tomi [address] [place] [address] 11/07/2024 3:15 PM EDT Office Visit [facility] [address] [facility] [place] [address] Rebecca Philip, OD [address] [place] [address] Scheduled Orders Name Type Priority Associated Diagnoses Orde r Schedule Lipid Panel, Standard Lab Routine Chest pain, unspecified type Palpitations Anxiety Moderate episode of recurrent major depressive disorder (CMS/HCC) Expected: 07/10/2024 (Approximate), Expires: 07/10/2025 Transthoracic Echo (TTE) Complete Echocardiography Routine Chest pain, unspecified type Palpitations Expected: 07/10/2024 (Approximate), Expires: 07/10/2026 Holter monitor - 24 hour Cardiac Services Routine Chest pain, unspecified type Palpitations Expected: 07/10/2024 (Approximate), Expires: 07/10/2026 ECG 12 lead ECG Routine Chest pain, unspecified type Ordered: 07/10/2024 Scheduled Referrals Name Type Priority Associated Diagnoses Orde r Schedule Referral to Cardiology Outpatient Referral STAT Chest pain, unspecified type Palpitations Expected: 07/10/2024 (Approximate), Expires: 07/10/2025 documented as of this encounter Procedures Procedure Name Priority Date/Time Associated Diagnosis Comments ECG 12-LEAD Routine 07/10/2024 5:24 PM EST Chest pain, unspecified type VITAMIN D,25-OH,TOTAL,IA Routine 07/10/2024 2:50 PM EST [...] depressive disorder (CMS/HCC) HEPATIC FUNCTION PANEL Routine 07/10/2024 2:50 PM EST Chest pain, unspecified type Palpitations Anxiety Moderate episode of recurrent major depressive disorder (CMS/HCC) BASIC METABOLIC PANEL Routine 07/10/2024 2:50 PM EST Chest pain, unspecified type Palpitations Anxiety Moderate episode of recurrent major depressive disorder (CMS/HCC) documented in this encounter Results * ECG 12 lead (07/10/2024 5:24 PM EST) Abida Kiser DO - 07/10/2024 5:24 PM EST NSR, nml axis/intervals, no Q waves, no ST depression/elevation, TWF III (unchanged from prior) us Abida Varner DO ECG ORDERABLES Final Result * (ABNORMAL) Basic Metabolic Panel (07/10/2024 2:50 PM EST) Sodium 139 135 - 145 mmol/L [facility] Potassium 4.2 3.3 - 5.1 mmol/L [facility] Chloride 109(H) 96 - 108 mmol/L [facility] Carbon Dioxide 24 22 - 29 mmol/L [facility] Anion Gap 10(L) 12 - 20 [facility] Urea Nitrogen (BUN) 11 9 - 16 mg/dL [facility] Creatinine, Serum 0.74 0.5 - 1.4 mg/dL [facility] Estimated Glomerular Filt Rate >60 [facility] Comment:Chronic Kidney Disea se: Estimated GFR < 60 mL/min/[id number] Kidney Disease: Estimated GFR < 15 mL/min/1.73m2 Glucose 142(H) 60 - 115 mg/dL [facility] Calcium 9.6 8.4 - 10.2 mg/dL [facility] Blood Venous blood specimen / Unknown 07/10/2024 2:50 PM EST 07/10/2024 4:36 PM EST Abida Varner DO LAB BLOOD ORDERABLES Final R esult [facility] [address] [place] [phone] * (ABNORMAL) CBC (07/10/2024 2:50 PM EST) White Blood Count 7.7 4.8 - 10.8 X10*3/uL [facility] Red Blood Count 4.58 4.20 - 5.50 X10*6/uL [facility] Hemoglobin 11.1(L) 12.0 - 16.0 g/dl [facility] Hematocrit 33.8(L) 37.0 - 47.0 % [facility] Mean Corpuscular Volume 73.8(L) 80.0 - 98.0 fL [facility] Mean Corpuscular Hemoglobin 24.2(L) 27.0 - 33.0 pg [facility] Mean Corpuscular HGB Conc 32.8 31.0 - 35.0 g/dl [facility] Red Cell Distribution Width 15.5 11.0 - 16.0 % [facility] Platelet Count 329 160 - 400 X10*3/uL [facility] Mean Platelet Volume 11.2 9.4 - 12.3 fL [facility] NRBC Pct Auto 0.0 0.0 - 0.2 /100WBC [facility] NRBC Abs Auto 0.000 0.0 - 0.012 X10*3/uL [facility] Blood Venous blood specimen / Unknown 07/10/2024 2:50 PM EST 07/10/2024 4:36 PM EST Abida Jurcsak DO LAB BLOOD ORDERABLES Final R esult Performing Organization Address [facility] Co de Phone Number [facility] [address] [place] [phone] * (ABNORMAL) Hemoglobin A1c (07/10/2024 2:50 PM EST) Hemoglobin A1c 8.4(H) <6.0 % [facility] Comment:Hemoglobin A1C Refer ence Range Adults: 4.8 - 6.0 % Non diabetic: < 6.0 % Goal: < 7.0 %Additional Action Suggested: > 8.0 %Note: Hemoglobin A1c results are invalid for patients with abnormal amounts of HbF. Blood transfusions may impact the HbA1c concentration in the patient sample. Estimated Average Glucose 194 mg/dL [facility] Comment:eAG = Estimated ave rage glucose which is %A1C expressed asaverage glucose, using the formula of the F4G-SvdnotsUyewrlj Glucose study (ADAG), Diabetes Care, Vol.31,#8,Jan. 2007 Blood Venous blood specimen / Unknown 07/10/2024 2:50 PM EST 07/10/2024 4:36 PM EST us Abida Varner Txt4 LAB BLOOD ORDERABLES Final R esult Performing Organization Address [facility] Co de Phone Number [facility] [address] [place] [phone] * (ABNORMAL) Hepatic Function Panel (07/10/2024 2:50 PM EST) Bilirubin, Total 0.8 0.0 - 1.0 mg/dL [facility] Bilirubin, Direct 0.3 0.0 - 0.5 mg/dL [facility] Aspartate Amino Transferase 18 5 - 31 U/L [facility] Alanine Aminotransferase 9 0 - 31 U/L [facility] Total Protein 8.6(H) 6.5 - 8.0 g/dL [facility] Albumin Level 4.3 3.5 - 5.0 g/dL [facility] Alkaline Phosphatase 61 39 - 117 U/L [facility] Blood Venous blood specimen / Unknown 07/10/2024 2:50 PM EST 07/10/2024 4:36 PM EST Abida Varner LAB BLOOD ORDERABLES Final R esult Performing Organization Address City/[facility]/ZIP Co de Phone Number [facility] [address] [place] [phone] * (ABNORMAL) Vitamin D, 25-Hydroxy, Total, Immunoassay (07/10/2024 2:50 PM EST) Vitamin D 25-OH Total 17.6(L) >30 ng/mL [facility] Comment:Health Based Referen ce Values*< 20 ng/mL Padmpkyyi57-94 ng/mL Insufficient> 30 ng/mL Sufficient*Codey HINOJOSA. N [...] EST 07/10/2024 4:36 PM EST Abida Cazaresivett LAB BLOOD ORDERABLES Final R esult Performing Organization Address City/[facility]/ZIP Co de Phone Number [facility] [address] [place] [phone] * TSH (07/10/2024 2:50 PM EST) Thyroid Stimulating Hormone 1.00 0.32 - 4.0 uIU/mL [facility] Comment:TSH 3rd Generation ( [employer]) Blood Venous blood specimen / Unknown 07/10/2024 2:50 PM EST 07/10/2024 4:36 PM EST Abida Varner DO LAB BLOOD ORDERABLES Final R esult Performing Organization Address City/[facility] Co de Phone Number [facility] [address] [place] [phone] * T4, Free (07/10/2024 2:50 PM EST) Free T4 (Free Thyroxine) 1.02 0.71 - 1.85 ng/dL [facility] Blood Venous blood specimen / Unknown 07/10/2024 2:50 PM EST 07/10/2024 4:36 PM EST Abida Telly DO LAB BLOOD ORDERABLES Final R esult Performing Organization Address [facility] Co de Phone Number [facility] [address] [place] [phone] documented in this encounter Visit Diagnoses Diagnosis Chest pain, unspecified type- Primary Palpitations Anxiety Anxiety state, unspecified Moderate episode of recurrent major depressive disorder (CMS/HCC) documented in this encounter Additional Health Concerns Assessment Noted Time PHQ-9 Depression Total Score: 21 024 8:39 AM EDT documented as of this encounter Care Teams Coil Connector Relationship Specialty Start Date End Date Name, MD Tomi [address] [place] [phone] PCP - General Family Medicine 08/17/15 documented as of this encounter
--- OUTSIDE RECORDS SUMMARY | 2024-07-15 10:14 | XMS_ITS | Encounter Summary ---
Author Organization [employer] Address [address] [place] [address] Care Team Providers Care Configuration Management Specialist Name Role Phone Name, Tomi TELLEZ Primary Care Provider [phone] Reason for Visit * Reason Comments Routine Cleaning Dental Exam Encounter Details Date Type Department Care Team ([facility] st Contact Info) Description 07/10/2024 11:00 AM EST Office Visit [facility] ADULT DENTAL [address] [place] [address] Machelle Mitchell Social History Tobacco Use Types Packs/Day Years [...] past 12 months, has t he electric, [employer], oil or water [employer] threatened to shut off services in your [...] Sign Reading Time Taken Comments Blood Pressure 122/78 07/10/2024 9:54 AM EST Pulse - - Temperature - - Respiratory Rate - - Oxygen Saturation - - Inhaled Oxygen Concentration - - Weight - - Height - - Body Mass Index - - documented in this encounter Progress Notes * Machelle Mitchell - 07/10/2024 11:00 AM EST Patient ID: Maddie Hurtado is a 48 y.o. female. Time Out: Timeout Date: 07/10/24, Timeout Time: 953 Location: [facility] Tooth: Maxilla and Mandible Procedure: Exam, X-rays, and Prophylaxis Verified the above with patient, visitor service assistant, and provider. Confirmed via patient's chart, intraorally and by radiographs. Inspector And Hand Packager: Yes. Language: Bahraini. Inspector And Hand Packager's Name: Delma. Medical Hx: Vitals: Blood pressure 122/78. Medications, Med Hx reviewed with patient and updated in chart. Treatment Provided Dental procedures in this visit D1110 - PROPHYLAXIS - ADULT (Completed) Service provider: Machelle Devlin provider: Pancho Parker DDS [id number] - ADJUNCTIVE GENERAL SERVICES - PROFESSIONAL VISITS - CASE PRESENTATION, SUBSEQUENT TO DETAILED AND EXTENSIVE TREATMENT PLANNING (Completed) Service provider: Machelle Devlin provider: Pancho Parker DDS D1330 - ORAL HYGIENE INSTRUCTIONS (Completed) Service provider: Machelle Devlin provider: Pancho Parker DDS D0274 - BITEWINGS - 4 RADIOGRAPHIC IMAGES (Completed) Service provider: Machelle Devlin provider: Pancho Parker DDS D0220 - INTRAORAL - PERIAPICAL FIRST RADIOGRAPHIC IMAGE (Completed) Service provider: Machelle Devlin provider: Pancho Parker DDS D0230 - INTRAORAL - PERIAPICAL EACH ADDITIONAL RADIOGRAPHIC IMAGE (Completed) Service provider: Machelle Mitchell Billing provider: Pancho Parker DDS Instruments Used: Ultrasonic Scalers, Hand Scalers, and Prophy angle Fluoride: N/A Oral Cancer Screening: No lesions Head/Neck Exam: No Lesions Calculus: Heavy, Generalized, and Subgingival Plaque: Moderate and Generalized Stain: Light and Generalized Bleeding: Moderate and Generalized Gingiva: Perio Charting Completed, Bleeding on probing, Recession- localized, and Erythematous OH: Poor Perio Chart: Completed Dental exam done by Dr. Parker. Oral hygiene instructions provided to patient including brushing technique and flossing. Recommendations: [place]ipton two times daily, modified lombardi technique, Floss daily, Electric toothbrush, Soft bristle toothbrush, [place]on Tongue, Anti-sensitivity toothpaste Recall Frequency: 6 mo NV: Extractions Hygienist: Machelle Mitchell RDH * Pancho Parker DDS - 07/10/2024 11:00 AM EST Images from the original note were not included. Chief Complaint(s) - One of the fillings chipped in the lower teeth on the left side. Soft and Hard tissue findings- Negative; Head and Neck exam- No abnormal findings. TMJ/Occlusal - TMJ function appears within normal limits. Clinical examination revealed severe wearon the upper and lower anterior teeth, with the patient missing multiple posterior teeth. Consequently, the patient has been predominantly using her anterior teeth. The importance of maintaining posterior occlusion to protect the anterior teeth was discussed. Extraction of the supra- erupted teeth (#2, #3, and #16) was recommended. Additionally, the poor prognosis of tooth #14, due to severe distal bone loss, was explained. The patient also reported cheek biting on the left side. Examination showed a large occlusal mormonism on tooth #19, covering more than two-thirds of the buccolingual width. A crown was recommendedfor tooth #19 after cold testing, which yielded a normal response. The patient was informed about the possibility of the tooth requiring a root canal treatment in the future. The anterior teeth displayed an nirm-ty-fnie bite. The patient was offered a referral to a specialist to address opening the bite but declined the referral. Stages in the treatment plan: 1) Extractions. 2) Restorations. 3)Garfield #19. 4) Partial dentures. Oral Cancer Risk - Low. Caries Risk - High Perio Risk - High Risks/CC Addressed - Yes; Oral Hygiene Instruction Provided - Yes Referrals - None * Pancho Parker DDS - 07/10/2024 11:00 AM EST Images from the original note were not included. Comprehensive clinical and radiographic periodontal examination and charting review. Periodontal disease - type II Reviewed perio diagnosis, restorative treatment plan, dental charting, occlusion and oral cancer screening. Patient is aware that periodontal disease is a progressive non-curable disease. All treatment efforts are designed to preserve the dentition as long as possible. documented in this encounter Plan of Treatment Upcoming Encounters Date Type Department Care Team (Late st Contact Info) Description 07/30/2024 2:00 PM EST Office Visit [facility] ADULT DENTAL [address] [place] [address] Caro Greene, RAJEEVS [address] [place] [address] 09/18/2024 11:15 AM EDT Office Visit [facility] MEDICINE [address] [place] [address] Name, MD Tomi [address] [place] [address] 11/07/2024 3:15 PM EDT Office Visit [facility] OPTOMETRY [address] [place] [address] Rebecca Philip, OD [address] [place] [address] Scheduled Orders Name Type Priority Associated Diagnoses Orde r Schedule 2 2 EXTRACTION, ERUPTED TOOTH OR EXPOSED ROOT (ELEVATION AND/OR FORCEPS REMOVAL) Dental Routine 1 Occurrences [facility] 07/10/2024 3 3 EXTRACTION, ERUPTED TOOTH OR EXPOSED ROOT (ELEVATION AND/OR FORCEPS REMOVAL) Dental Routine 1 Occurrences [facility] 07/10/2024 16 16 EXTRACTION, ERUPTED TOOTH OR EXPOSED ROOT (ELEVATION AND/OR FORCEPS REMOVAL) Dental Routine 1 Occurrences [facility] 07/10/2024 18,30,31 18,30,31 MANDIBULAR PARTIAL DENTURE - RESIN BASE (INCLUDING, RETENTIVE/CLASPING MATERIALS, RESTS, AND TEETH) Dental Routine 1 Occurrences [facility] 07/10/2024 2,3,15 2,3,15 MAXILLARY PARTIAL DENTURE - RESIN BASE (INCLUDING, RETENTIVE/CLASPING MATERIALS, RESTS, AND TEETH) Dental Routine 1 Occurrences [facility] 07/10/2024 19 19 CROWN - PORCELAIN/CERAMIC Dental Routine 1 Occurrences starting 07/10/2024 12 DO 12 DO RESTORATIVE - RESIN-BASED COMPOSITE RESTORATIONS - DIRECT - RESIN-BASED COMPOSITE - TWO SURFACES, POSTERIOR Dental Routine 1 Occur rences starting 07/10/2024 13 MO 13 MO RESTORATIVE - RESIN-BASED COMPOSITE RESTORATIONS - DIRECT - RESIN-BASED COMPOSITE - TWO SURFACES, POSTERIOR Dental Routine 1 Occur rences starting 07/10/2024 25 MIF 25 MIF RESTORATIVE - RESIN-BASED COMPOSITE RESTORATIONS - DIRECT - RESIN-BASED COMPOSITE - THREE SURFACES, ANTERIOR Dental Routine 1 Occu rrences starting 07/10/2024 5 DO 5 DO RESTORATIVE - RESIN-BASED COMPOSITE RESTORATIONS - DIRECT - RESIN-BASED COMPOSITE - TWO SURFACES, POSTERIOR Dental Routine 1 Occur rences starting 07/10/2024 documented as of this encounter Procedures Procedure Name Priority Date/Time Associated Diagnosis Comments PROPHYLAXIS - ADULT Routine 07/10/2024 1 1:00 AM EST PERIODIC ORAL EVALUATION - ESTABLISHED PATIENT Routine 07/10/2024 11:00 AM EST ORAL HYGIENE INSTRUCTIONS Routine 2024 11:00 AM EST INTRAORAL - PERIAPICAL FIRST RADIOGRAPHIC IMAGE Routine 07/10/2024 11:00 AM EST INTRAORAL - PERIAPICAL EACH ADDITIONAL RADIOGRAPHIC IMAGE Routine 07/10/2024 11:00 AM EST COMPREHENSIVE PERIODONTAL EVALUATION - NEW OR ESTABLISHED PATIENT Routine 07/10/2024 11:00 AM EST ADJUNCTIVE GENERAL SERVICES - PROFESSIONAL VISITS - CASE PRESENTATION, SUBSEQUENT TO DETAILED AND EXTENSIVE TREATMENT PLANNING Routine 07/10/2024 11:00 AM EST BITEWINGS - 4 RADIOGRAPHIC IMAGES Routine 07/10/2024 11:00 AM EST documented in this encounter Visit Diagnoses Not on filedocumented in this encounter Additional Health Concerns Assessment Noted Time PHQ-9 Depression Total Score: 21 024 8:39 AM EDT documented as of this encounter Care Teams Configuration Management Specialist Relationship Specialty Start Date End Date Name, MD Tomi [address] [place] [address] PCP - General Family Medicine 08/17/15 documented as of this encounter
--- OUTSIDE RECORDS SUMMARY | 2024-07-15 10:15 | XMS_ITS | Encounter Summary ---
Author Organization [facility] Address [address] [place] [address] Care Team Providers Care Scratch Brusher Name Role Phone Name, Tomi TELLEZ Primary Care Provider [phone] Reason for Visit * Reason Onset Date Comments Triage 10/27/2022 Encounter Details Date Type Department Care Team ([facility] st Contact Info) Description 10/27/2022 Telephone [facility] MEDICINE [address] [place], [place] [id number] Name, MD Tomi [address] [place], [place] [id number] Triage Social History Tobacco Use Types Packs/Day Years Used Date Smoking Tobacco: Never Assessed Depression Answer Date Recorded Patient Health Questionnaire-9 [...] the past 12 months, has t he [employer], gas, oil or water [employer] threatened to shut off services in your home? No 04/18/2023 Depression Answer Date Recorded Patient Health Questionnaire-2 Score 6 02/15/2024 Comments Unknown Sex and Gender Information Value Date Recorded Sex Assigned at Female 04/17/2022 10:22 AM EDT Legal Sex Female 10:22 AM EDT Gender Identity Female 04/17/2022 10:22 AM EDT Sexual Orientation Straight 04/17/2022 10 :22 AM EDT COVID-19 Exposure Response Date Recorded In the last 10 days, have yo u been in contact with someone who was confirmed or suspected to have Coronavirus/COVID-19? No / Unsure 12/08/2022 1:11 PM EDT documented as of this encounter Miscellaneous Notes * Telephone Encounter - Ashley Tomlin RN - 10/27/2022 4:31 PM EDT Incoming call from Antonia at [facility] pharmacy. States pt needs new rx for One Touch Verio Flexmeter, One Touch verio test strips and one touch delica lancets d/t formulary change. Advised will request new rx from covering provider. * Telephone Encounter - Cherri Back RN - 10/27/2022 9:20 AM EDT Triage call with [facility] [place] [id number] Pt reports rash on left side of neck. Pt reports it has been there for 5 days and is very itchy, red, bumpy and is like the skin of a snake . Pt reports no drainage from area but, due to scratching some open areas. Pt is advised to come to [facility] today, Pt agrees with disposition and home care reviewed. Insurance is verified as active prior to booking Protocol Used: Rash or Redness - Localized (Adult) Protocol-Based Disposition: See in Office or Video Visit Today Video visit not offered Positive Triage Question: * Patient wants to be seen * All higher-acuity triage questions were negative Care Advice Discussed: * Reassurance and Education - Mild Localized Rash * Avoid the Cause * Wash the Area * Cold Pack for Mild Itching or Mild Pain * Hydrocortisone Cream for Itching * Don't Scratch * Contagiousness * Expected Course * Reasons To Call Back - Rash spreads or becomes worse - Rash lasts longer than 1 week - You become worse * Telephone Encounter - Lona Rodriguez - 10/27/2022 9:02 AM EDT Symptom: Rash or Redness on One Body Area Only Outcome: Talk to a nurse or provider within 15 minutes Reason: Dark red or purple spots The caller accepted this outcome Please contact at [phone] Polish documented in this encounter Plan of Treatment Upcoming Encounters Date Type Department Care Team ([facility] st Contact Info) Description 07/30/2024 2:00 PM EST Office Visit [facility] ADULT DENTAL [address] [place] [address] Caro Greene DDS [address] [place] [address] 09/18/2024 11:15 AM EDT Office Visit [facility] MEDICINE [address] [place] [address] Tomi Rand MD [address] [place] [address] 11/07/2024 3:15 PM EDT Office Visit [facility] OPTOMETRY [address] [place] [address] Rebecca Philip, OD [address] [place] [address] documented as of this encounter Visit Diagnoses Diagnosis Type 2 diabetes mellitus without complication, with long-term current use of insulin ([facility])- Primary documented in this encounter Care Teams Scratch Brusher Relationship Specialty Start Date End Date Tomi Rand MD [address] [place] [id number] PCP - General Family Medicine 3/1/16 documented as of this encounter
== END ==
LOC: HO.CARD 09:38
PROVIDERS: PCP Internal Medicine Geriatric Medicine; Visit Provider Family Medicine
DX: R07.9 Chest pain, unspecified (principal)
CPT/HCPCS: 93225

== ENCOUNTER → 2024-07-15 09:41 | Outpatient (BNV) | payer OTHER, SELFPAY | PROVIDERS: PCP Internal Medicine Geriatric Medicine; Visit Provider Internal Medicine | DX: I47.10 Supraventricular tachycardia, unspecified (principal) | CPT/HCPCS: 93227 ==